=== PATIENT | male | born 1975 | race Caucasian/White ===

== ENCOUNTER → 2017-02-10 | Outpatient (CLI) | payer OTHER ==
--- NOTE | 2017-02-10 08:35 | DIAGNOSTIC IMAGING REPORT ---
ABDOMEN LIMITED (US) HISTORY: Pain ABD PAIN, LLQ. COMPARISON: None. FINDINGS: Evaluation of the left lower quadrant at the level of the abdominal wall shows no evidence for hernia. Echogenicity of the subcutaneous tissues is unremarkable. No abnormal mass or collection is identified. IMPRESSION: Negative study. No evidence for hernia or soft tissue abnormality The above report was generated using voice recognition software. It may contain grammatical, syntax or spelling errors. Electronically signed by: Braden Nixon M.D. 02/10/2017 8:34 AM Dictated Date/Time: 02/10/2017 8:33 AM
== END | disposition home or self-care (01) ==
LOC: C.ULTR 08:00
PROVIDERS: ATTEND Family Medicine
DX: R10.32 Left lower quadrant pain (principal)